=== PATIENT | male | born 1960 | race African-American/Black ===

== ENCOUNTER → 2022-08-23 | Outpatient (CLI) | payer MEDICARE, MEDICAID ==
[~2022-08-23] MED LIST: BENA-8 PO; COLC0.6T66 PO; NAP5EC; OMEP20CA4 PO
== END | disposition home or self-care (01) ==
LOC: RAD 13:28
PROVIDERS: ATTEND Internal Medicine Nephrology
DX: R16.0 Hepatomegaly, not elsewhere classified (principal)
CPT/HCPCS: 71045

== ENCOUNTER → 2022-08-25 | Outpatient (CLI) | payer MEDICARE, MEDICAID | END | disposition home or self-care (01) | LOC: US 08:54 | PROVIDERS: ATTEND Internal Medicine Nephrology | DX: K76.0 Fatty (change of) liver, not elsewhere classified (principal); N28.1 Cyst of kidney, acquired; R16.0 Hepatomegaly, not elsewhere classified | CPT/HCPCS: 76700 ==

== ENCOUNTER 2022-11-14 05:28 | Day surgery (SDC) | payer MEDICARE, MEDICAID ==
[~2022-11-14] VITALS: Ht 193 cm; Wt 89.8 kg
[~2022-11-14 05:28] MED LIST changes: +AMLO10TA80 PO; +AZAT50TA24 PO; -NAP5EC; -OMEP20CA4 PO; +PANT40TA51 PO
[2022-11-14] MEDS ORDERED: SODIUM CHLORIDE 0.9% 1,000 ML IV SCH (06:20)
[2022-11-14] MEDS ORDERED: [UNRECOGNIZED DRUG - CODE] IV (06:35)
[2022-11-14] MEDS ORDERED: POLYMYXIN B SULFATE 500000 UNITS/VIAL ONE (07:17)
[2022-11-14] MEDS ORDERED: LIDOCAINE HCL 1% 20ML VIAL (Pyxis) INJ ONE (07:17)
[2022-11-14] MEDS ORDERED: BUPIVACAINE HCL/PF 0.5% (5MG/ML) 10ML ONE (07:17)
[2022-11-14] MEDS ORDERED: PROPOFOL 200MG/20ML VIAL IV ONE (07:49)
[2022-11-14] MEDS ORDERED: SUCCINYLCHOLINE CHLORIDE 200MG/10ML IV ONE (07:49)
[2022-11-14] MEDS ORDERED: FENTANYL CITRATE/PF 50MCG/ML 2ML VIAL ONE (07:50)
[2022-11-14] MEDS ORDERED: MIDAZOLAM HCL 2 MG/2 ML VIAL ONE (07:50)
[2022-11-14] MEDS ORDERED: ROCURONIUM BROMIDE 10MG/ML VIAL 5ML IV ONE (08:11)
[2022-11-14] MEDS ORDERED: METOCLOPRAMIDE HCL 10MG/2ML VIAL ONE (08:48)
[2022-11-14] MEDS ORDERED: DEXAMETHASONE 4MG/ML 1ML VIAL ONE (08:48)
[2022-11-14] MEDS ORDERED: NEOSTIGMINE METHYLSULFATE 1MG/ML 10 ML VIAL ONE (08:48)
[2022-11-14] MEDS ORDERED: GLYCOPYRROLATE 0.2 MG/ML 2ML VIAL ONE (08:49)
[2022-11-14] MEDS ORDERED: PHENYLEPHRINE HCL 10 MG/ML 1ML (IV VIAL) IV ONE (09:06)
[2022-11-14] MEDS ORDERED: FENTANYL CITRATE/PF 50MCG/ML 2ML VIAL IV PRN (09:15)
== END 2022-11-14 11:20 | disposition home or self-care (01) ==
LOC: OR 05:28
PROVIDERS: ATTEND Specialist
DX: K40.90 Unilateral inguinal hernia, without obstruction or gangrene, not specified as recurrent (principal); I10 Essential (primary) hypertension; E78.5 Hyperlipidemia, unspecified; M19.90 Unspecified osteoarthritis, unspecified site; M10.9 Gout, unspecified; Z79.899 Other long term (current) drug therapy; Z88.6 Allergy status to analgesic agent; Z88.8 Allergy status to other drugs, medicaments and biological substances; Z98.890 Other specified postprocedural states
CPT/HCPCS: 49505; 88304; J3010; J3490 ×5; J1100; J2765; J2250; J2710; J2370; J2704; J0330; A4217; Z7610 ×18; C1781